=== PATIENT | female | born 1940 | race Caucasian/White ===

== ENCOUNTER 2017-08-11 15:15 | Outpatient (CLI) | payer MEDICARE ==
[~2017-08-11 15:15] MED LIST: Iopamidol 370 76% 100 ML VIAL ONE
[2017-08-11 16:00] LABS: ALT (SGPT) 18 U/L (8-55); AST (SGOT) 19 U/L (5-34); Albumin 4.1 g/dL (3.4-4.8); Alkaline Phosphatase 77 U/L (40-150); Anion Gap 16 mmol/L (10-20); BUN (Urea Nitrogen) 12 mg/dL (9.8-20.1); Bilirubin, Total 1.3 mg/dL (0.2-1.2); Calc. Creatinine Clearance 0 mL/min (70-130); Calcium 10.3 mg/dL (7.8-10.44); Carbon Dioxide 26 mmol/L (23-31); Chloride 100 mmol/L (98-107); Estimated GFR-MDRD 65; Glucose 236 mg/dL (83-110); Protein, Total 7.1 g/dL (6.0-8.3); Sodium 138 mmol/L (136-145)
--- NOTE | 2017-08-11 17:28 | CT ---
CT OF THE ABDOMEN AND PELVIS WITH CONTRAST: Comparison: None. History: Abdominal pain in her stomach that is colicky in nature. Patient has diabetes. Technique: Multiple contiguous axial images were obtained in a CT of the abdomen and pelvis with cont rast. Coronal reformats were performed. FINDINGS: The patient is status post cholecystectomy and hysterectomy. The liver, right kidney, adrenal glands, spleen, and pancreas are unremarkable. There are hypodensities in the left kidney which are subcenti meter in size. These likely represent cysts. There is a small amount of stranding change adjacent to the left colon adjacent to multiple sigmoid a nd left colon diverticula. No free air or free fluid are seen in the abdomen or pelvis. The small bow el and appendix are unremarkable. No abdominal or pleural lymphadenopathy are seen. Degenerative changes are seen in the spine. The visualized inferior thorax and abdominal wall soft ti ssues are unremarkable. IMPRESSION: Acute diverticulitis. POS: DEB
[2017-08-11 20:07] LABS: Hemoglobin 14.8 g/dL (12.0-16.0); Lymphocytes 23 % (21-51); MDiff Complete? YES; Mean Corpuscular HGB CONC 32.3 g/dL (32.0-36.0); Mean Corpuscular Hemoglobin 28.1 pg (27.0-31.0); Mean Corpuscular Volume 87.1 fl (81.0-99.0); Mean Platelet Volume 10.4 fL (7.4-10.4); Monocytes 7 % (0-10); Neutrophil 70 % (42-75); Platelet Count 272 thou/uL (130-400); RBC Distribution Width 11.6 % (11.5-14.5); Red Blood Cell (RBC) Count 5.26 mill/uL (4.20-5.40); White Blood Cell (WBC) Count 13.9 thou/uL (4.8-10.8)
== END 2017-08-11 15:16 | disposition home or self-care (01) ==
LOC: NAV CT 15:15
PROVIDERS: ATTEND Internal Medicine
DX: R10.83 Colic (principal); K57.92 Diverticulitis of intestine, part unspecified, without perforation or abscess without bleeding
CPT/HCPCS: 74177; 80053; 85025

== ENCOUNTER 2017-09-05 09:33 | Outpatient (CLI) | payer MEDICARE, OTHER | END 2017-09-05 09:34 | disposition home or self-care (01) | LOC: NAV DTY OP 09:33 | PROVIDERS: ATTEND Internal Medicine | DX: K57.92 Diverticulitis of intestine, part unspecified, without perforation or abscess without bleeding (principal); E11.9 Type 2 diabetes mellitus without complications | CPT/HCPCS: 97802 ==

== ENCOUNTER 2019-04-11 10:12 | Emergency (ER) | payer MEDICARE ==
[2019-04-11] MEDS ORDERED: Lidocaine 1% w/Epinephrine 1:100K 30 ML VIAL ONE (10:47)
[2019-04-11] MEDS ORDERED: Sodium Bicarb 5 MEQ/10 ML Abboject 4.2% SYRINGE ONE (10:52)
[2019-04-11] MEDS ORDERED: Sodium Bicarbonate 2.5 MEQ/5 ML VIAL ONE (10:53)
[2019-04-11] MEDS ORDERED: Clindamycin 150 MG CAP ONE (10:56)
[2019-04-11] MEDS ORDERED: Adacel (T-DAP) 0.5 ML SYRINGE ONE (11:14)
[2019-04-11] MEDS ORDERED: Bacitracin 1 PK ONE (11:24)
== END 2019-04-11 11:52 | disposition home or self-care (01) ==
LOC: NAV ERS 10:12
DX: S01.81XA Laceration without foreign body of other part of head, initial encounter (principal); E11.9 Type 2 diabetes mellitus without complications; E78.5 Hyperlipidemia, unspecified; E78.00 Pure hypercholesterolemia, unspecified; I10 Essential (primary) hypertension; Z79.82 Long term (current) use of aspirin; Z79.84 Long term (current) use of oral hypoglycemic drugs; Z79.899 Other long term (current) drug therapy; Z23 Encounter for immunization; W01.198A Fall on same level from slipping, tripping and stumbling with subsequent striking against other object, initial encounter; Y93.01 Activity, walking, marching and hiking
CPT/HCPCS: 12011; 90471; 90715; J2001

== ENCOUNTER 2021-07-11 14:10 | Outpatient (CLI) | payer MEDICARE | END 2021-07-11 14:11 | disposition home or self-care (01) | LOC: NAV RAD 14:10 | PROVIDERS: ATTEND Family Medicine | DX: M25.552 Pain in left hip (principal) ==

== ENCOUNTER 2021-07-18 08:26 | Outpatient (CLI) | payer MEDICARE | END 2021-07-18 08:27 | disposition home or self-care (01) | LOC: NAV CT 08:26 | PROVIDERS: ATTEND Family Medicine | DX: S72.102A Unspecified trochanteric fracture of left femur, initial encounter for closed fracture (principal); R26.89 Other abnormalities of gait and mobility; Z74.09 Other reduced mobility; R52 Pain, unspecified ==

== ENCOUNTER 2023-09-26 08:01 | Emergency (ER) | payer MEDICARE ==
[2023-09-26] MEDS ORDERED: Lidocaine 1% w/Epinephrine 1:100K 20 ML VIAL ONE (08:17)
[2023-09-26] MEDS ORDERED: Sodium Chloride 0.9% 500 ML ONE (08:32)
[2023-09-26] MEDS ORDERED: Midazolam HCl 2 mg/2 ml Vial ONE (08:49)
[2023-09-26] MEDS ORDERED: Bacitracin 1 PK ONE (11:21)
== END 2023-09-26 11:25 | disposition left against medical advice (07) ==
LOC: NAV ERS 08:01
DX: S01.01XA Laceration without foreign body of scalp, initial encounter (principal); M47.812 Spondylosis without myelopathy or radiculopathy, cervical region; M48.02 Spinal stenosis, cervical region; R00.0 Tachycardia, unspecified; I10 Essential (primary) hypertension; E11.9 Type 2 diabetes mellitus without complications; Z79.84 Long term (current) use of oral hypoglycemic drugs; W18.30XA Fall on same level, unspecified, initial encounter
CPT/HCPCS: 12004; 70450; 72125; 96361; 96374; J2250; J7030

== ENCOUNTER 2023-10-06 09:42 | Emergency (ER) | payer MEDICARE | END 2023-10-06 10:48 | disposition home or self-care (01) | LOC: NAV ERS 09:42 | DX: S01.01XD Laceration without foreign body of scalp, subsequent encounter (principal); W19.XXXD Unspecified fall, subsequent encounter ==